=== PATIENT | male | born 2000 | race Caucasian/White ===

== ENCOUNTER 2023-10-16 17:57 | Emergency (ER) | payer BC, SELFPAY ==
[2023-10-16 18:25] VITALS: BP 122/73; PULSE 84; RESP 20; TEMP 36.8; O2SAT 100
--- NOTE | 2023-10-16 21:57 | PC.NURSE ---
pt states he no longer wants to wait. this RN encouraged pt to stay but pt left regardless. pt [email or web address]
== END 2023-10-16 23:41 | disposition left against medical advice (07) ==
PROVIDERS: PCP Family Medicine
DX: R53.83 Other fatigue (principal)
CPT/HCPCS: 99199